=== PATIENT | male | born 1955 | race Caucasian/White ===

== ENCOUNTER 2021-07-18 16:52 | Emergency (ER) | payer MEDICARE ==
[2021-07-18] MEDS ORDERED: TESSALON PERLE100 M1 PO (22:24)
[2021-07-18] MEDS ORDERED: VENTOLIN HFA18 GM INH (22:24)
[2021-07-18] MEDS ORDERED: MEDROL 4MG DOSEP4 MG PO (22:24)
[2021-07-18] MEDS ORDERED: PHENERGAN25 M1 PO (22:24)
== END 2021-07-18 22:45 | disposition home or self-care (01) ==
LOC: FER 16:52
DX: U07.1 COVID-19 (principal); E11.9 Type 2 diabetes mellitus without complications; I25.10 Atherosclerotic heart disease of native coronary artery without angina pectoris; I10 Essential (primary) hypertension; Z95.0 Presence of cardiac pacemaker; Z88.5 Allergy status to narcotic agent
CPT/HCPCS: M0243; Q0244